=== PATIENT | male | born 1955 | race Caucasian/White ===

== ENCOUNTER → 2021-05-17 07:31 | Outpatient (CLI) | payer OTHER, SELFPAY ==
--- NOTE | 2021-05-17 | DI.MRI.S_ITS ---
PROCEDURE: MR HEAD/BRAIN WO/W CON INDICATIONS: COGNITIVE IMPAIRMENT TECHNIQUE: Noncontrast axial T1 spin echo, axial T2 fast spin echo, sagittal and axial FLAIR, coronal T2 fast spin echo, axial gradient echo, axial diffusion and ADC through the brain. After the administration of contrast, axial and coronal T1 spin echo with fat saturation through the brain. COMPARISON: None. FINDINGS: Image quality: Excellent. CSF spaces: Basal cisterns are patent. No extra-axial fluid collections. Ventricles are normal in size and shape. Brain: No midline shift. No intracranial bleeds or masses. No abnormal intracranial enhancement. There is cerebral volume loss for age. There is periventricular white matter chronic small vessel ischemic change. The brainstem appears normal. Diffusion-weighted images demonstrate no acute ischemic insults. No chronic ischemic insults. Normal intravascular flow voids are present. Skull and face: Calvarial marrow is normal in signal. Orbits appear normal. Sinuses: Sinuses and mastoids appear clear. IMPRESSION: 1. Volume loss and small vessel ischemic disease. 2. No acute process. No recent infarct. Dictated by: Ravi Mendez M.D. on 05/17/2021 at 8:47 Approved by: Ravi Mendez M.D. on 05/17/2021 at 8:48
== END ==
PROVIDERS: PCP Family Medicine; Referring Provider Specialist; Visit Provider Specialist
DX: R41.89 Other symptoms and signs involving cognitive functions and awareness (principal)
CPT/HCPCS: 70553; A9579

== ENCOUNTER → 2021-05-29 07:17 | Outpatient (CLI) | payer OTHER, SELFPAY ==
--- NOTE | 2021-05-29 | DI.MRI.S_ITS ---
PROCEDURE: MR CERVICAL SPINE WO CON INDICATIONS: Cervicalgia TECHNIQUE: Noncontrast sagittal T1 spin echo and T2 fast spin echo, sagittal STIR, foraminal oblique sagittal T2 fast spin echo, and axial gradient echo or T2 fast spin echo through the cervical spine. COMPARISON: [facility], MR, MR HEAD/BRAIN WO/W CON, 05/17/2021, 7:56. FINDINGS: Image quality: This examination is limited by involuntary motion artifact. Alignment and Curvature: There is normal bony alignment. Bone Marrow: Marrow demonstrates normal overall signal. Spinal Cord: Visualized spinal cord has normal size and signal. No cerebellar tonsillar herniation. Paraspinous Soft Tissues: No paravertebral masses. Prevertebral soft tissues are normal in thickness. C2-C3: The disc height is well-preserved. Loss of disc signal is seen at this level. Mild to moderate disc osteophyte complex is seen, which is eccentric to the right. Moderate facet joint hypertrophy is seen. There is moderate to severe right-sided and [id number] left-sided neural foraminal narrowing seen. Mild central canal narrowing is seen. C3-C4: Mild loss of disc height is seen. Loss of disc signal is seen. Moderate disc osteophyte complex is seen, with a central disc osteophyte protrusion. There is prominent right-sided and moderate left-sided facet hypertrophy seen. There is moderate to severe bilateral neural foraminal narrowing seen, right worse than left. Moderate central canal narrowing is seen. There is associated mass effect upon the ventral spinal cord. C4-C5: The disc height is well-preserved. Loss of disc signal is seen at this level. Moderate generalized disc osteophyte complex is seen. There is prominent right-sided and moderate left-sided facet hypertrophy seen. Moderate to severe right-sided and at least moderate left-sided neural foraminal narrowing can be seen. Mild to moderate central canal narrowing is seen, with minimal mass effect upon the ventral spinal cord. C5-C6: Moderate loss of disc height is seen. Loss of disc signal is seen. At least moderate disc osteophyte complex is seen, which is eccentric to the right. Moderate facet joint hypertrophy is seen. Moderate to severe bilateral neural foraminal narrowing can be seen, right worse than left. Moderate central canal narrowing is seen, with associated ventral cord flattening. C6-C7: Moderate loss of disc height is seen. Loss of disc signal is seen. Bridging endplate osteophytes are seen. At least moderate disc osteophyte complex is seen, a central disc osteophyte protrusion. Moderate facet hypertrophy is seen, left worse than right. There is moderate to severe left-sided and least moderate right-sided neural foraminal narrowing seen. Moderate central canal narrowing is seen. There is associated mass effect upon the ventral spinal cord. C7-T1: The disc height is well-preserved. Loss of disc signal is seen at this level. Moderate generalized disc osteophyte complex is seen. Moderate facet joint hypertrophy is seen. There is [id number] right-sided and mild left-sided neural foraminal narrowing seen. Mild central canal narrowing is seen. IMPRESSION: Multiple levels of relatively prominent cervical spine degenerative change are seen, which are overall worst at C3-C4 and at C5-C6 a. Dictated by: Sergio Mahoney M.D. on 05/29/2021 at 8:56 Approved by: Sergio Mahoney M.D. on 05/29/2021 at 9:02
== END ==
PROVIDERS: PCP Family Medicine; Referring Provider Specialist; Visit Provider Specialist
DX: M47.812 Spondylosis without myelopathy or radiculopathy, cervical region (principal); M54.2 Cervicalgia; R29.2 Abnormal reflex; R20.2 Paresthesia of skin
CPT/HCPCS: 72141

== ENCOUNTER 2022-07-14 16:18 | Emergency (ER) | payer OTHER, SELFPAY ==
[2022-07-14] VITALS (19 sets, daily range): BP systolic 117–136; BP diastolic 56–71; PULSE 93–103; RESP 20–42; TEMP 36.7–37.3; O2SAT 93–95; BMI 24.9
--- NOTE | 2022-07-14 16:30 | DI.RAD.S_ITS ---
PROCEDURE: XR CHEST 1V INDICATIONS: suspected sepsis TECHNIQUE: One view of the chest was acquired. COMPARISON: None. FINDINGS: Surgical changes and devices: None. Lungs and pleura: Diffuse bilateral patchy infiltrates. No pleural effusions or pneumothorax. Mediastinum: Mediastinal contours appear normal. Heart size is normal. Bones and chest wall: No suspicious bony lesions. Overlying soft tissues appear unremarkable. Degenerative changes of both shoulders. IMPRESSION: Diffuse bilateral infiltrates consistent with atelectasis and/or diffuse pneumonia. Dictated by: Markus De M.D. on 07/14/2022 at 16:13 Approved by: Markus De M.D. on 07/14/2022 at 16:15
--- NOTE | 2022-07-14 16:47 | PC.NURSE ---
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 pt began having cough 2.5weeks ago, has it also. is better now.. pt went to walk in clinic and was diagnosed with bronchitis, has had 2 rounds of antibiotics last one finished yesterday, doxycycline. pt is not improved still have constant fever and is very fatigued
--- NOTE | 2022-07-14 16:49 | ED_ITS ---
HPI - General Adult <Hermann Goodman DO - Last Filed: 07/15/22 07:09> General Chief complaint: Fever Stated complaint: Sick, High fever Time Seen by Provider: 07/14/22 16:28 Source: patient and family Mode of arrival: Wheelchair Limitations: no limitations History of Present Illness HPI narrative: Patient is a 66-year-old male. Has a history of CLL and is being treated for this. For the past 2 weeks has had fatigue and fevers. He has been seen 2 times at an outpatient walk-in clinic. Has been on 2 different antibiotics. The 1st 1 sounds like it was azithromycin and he just completed a course of doxycycline. This was for ?bronchitis? he does not carry history of COPD but does have a significant smoking history. Denies any skin rashes. No abdominal pain. No sinus congestion. No sore throat. No chest pain. No abdominal pain. He did start to have diarrhea approximately week ago. Patient's states that when he develops the fevers he becomes disoriented. Related Data Allergies Allergy/AdvReac Type Severity Reaction Status Date / Time No Known Drug Allergies Allergy Verified 07/14/22 16:27 Review of Systems <DO Kenia Magallanes Last Filed: 07/15/22 07:09> Review of Systems ROS Unobtainable: All systems reviewed & are unremarkable except as noted in HPI and below Patient History <Hermann Goodman DO - Last Filed: 07/15/22 07:09> Medical History CLL (chronic lymphocytic leukemia) Social History Smoking Status: Former smoker Smoking Status: Former smoker alcohol intake frequency: 0-2 drinks per day Alcohol type: hard liquor Substance Use Type: does not use Exam <DO Kenia Magallanes Last Filed: 07/15/22 07:09> Initial Vital Signs Initial Vital Signs: Vital Signs Pulse Oximetry 95 07/14/22 16:25 Const General: cooperative, comfortable and No ill appearing HENMT Head: normal to inspection and normocephalic Resp Effort & Inspection: normal respiratory effort Auscultation: clear to auscultation bilaterally Cardio Rate: regular rate Rhythm: regular rhythm GI Inspection: normal to inspection Palpation: soft, No firm, splenomegaly and No tender Skin General: no rashes or lesions noted Neuro General: patient alert, patient awake and moves all extremities Extrem General: normal to inspection and capillary refill normal Psych Appearance: grossly normal and well kempt <Hernando Cox DO - Last Filed: 07/14/22 20:47> Initial Vital Signs Initial Vital Signs: Vital Signs Pulse Oximetry 95 07/14/22 16:25 Course <Hermann Goodman DO - Last Filed: 07/15/22 07:09> Orders Ordered: Discontinued Medications Sodium Chloride (Normal Saline 0.9%) 1,000 mls @ 1,000 mls/hr IV BOLUS ONE Stop: 07/14/22 17:29 Last Admin: 07/14/22 17:28 Dose: Not Given Documented By: NR Ondansetron HCl (Ondansetron 4 Mg Odt) 4 mg SL NOW PRN PRN Reason: Nausea And Vomiting Ondansetron HCl (Ondansetron 4 Mg/2 Ml Inj) 4 mg IV NOW PRN PRN Reason: Nausea And Vomiting Vital Signs Vital signs: Vital Signs - 8 hr 07/14/22 16:27 07/14/22 16:25 07/14/22 16:30 Temperature 98.0 F Pulse Rate 103 H 96 H Respiratory Rate 20 40 H Blood Pressure 136/63 Pulse Oximetry 95 95 95 Oxygen Delivery Method Room Air 07/14/22 16:38 07/14/22 16:38 07/14/22 16:45 Temperature Pulse Rate 95 H Respiratory Rate 29 H Blood Pressure 130/63 129/65 Pulse Oximetry 94 Oxygen Delivery Method 07/14/22 16:45 07/14/22 17:00 07/14/22 17:00 Temperature Pulse Rate 96 H 101 H Respiratory Rate 42 H 31 H Blood Pressure 117/56 L Pulse Oximetry 94 94 Oxygen Delivery Method 07/14/22 17:15 07/14/22 17:15 07/14/22 17:30 Temperature Pulse Rate 93 H Respiratory Rate 25 H Blood Pressure 122/59 L 122/57 L Pulse Oximetry 93 Oxygen Delivery Method 07/14/22 17:30 07/14/22 17:45 07/14/22 17:45 Temperature Pulse Rate 94 H 95 H Respiratory Rate 26 H 26 H Blood Pressure 123/56 L Pulse Oximetry 93 93 Oxygen Delivery Method 07/14/22 18:05 07/14/22 18:06 07/14/22 18:06 Temperature Pulse Rate 99 H 99 H Respiratory Rate 30 H 28 H Blood Pressure 134/66 Pulse Oximetry 94 95 Oxygen Delivery Method 07/14/22 18:15 07/14/22 18:15 07/14/22 18:30 Temperature Pulse Rate 97 H Respiratory Rate 26 H Blood Pressure 134/66 131/66 Pulse Oximetry 93 Oxygen Delivery Method 07/14/22 18:30 07/14/22 18:45 07/14/22 18:45 Temperature Pulse Rate 96 H 96 H Respiratory Rate 25 H 26 H Blood Pressure 127/68 Pulse Oximetry 94 93 Oxygen Delivery Method 07/14/22 19:43 07/14/22 19:00 07/14/22 19:00 Temperature 99.2 F Pulse Rate 96 H 96 H Respiratory Rate 26 H 25 H Blood Pressure 132/70 133/68 Pulse Oximetry 94 93 Oxygen Delivery Method Room Air 07/14/22 19:11 07/14/22 19:11 07/14/22 19:15 Temperature Pulse Rate 96 H 96 H Respiratory Rate 29 H 28 H Blood Pressure 135/71 Pulse Oximetry 94 94 Oxygen Delivery Method 07/14/22 19:30 07/14/22 19:30 Temperature Pulse Rate 97 H Respiratory Rate 26 H Blood Pressure 132/70 Pulse Oximetry 93 Oxygen Delivery Method <Hernando Cox DO - Last Filed: 07/14/22 20:47> Orders Ordered: Discontinued Medications Sodium Chloride (Normal Saline 0.9%) 1,000 mls @ 1,000 mls/hr IV BOLUS ONE Stop: 07/14/22 17:29 Last Admin: 07/14/22 17:28 Dose: Not Given Documented By: NR Ondansetron HCl (Ondansetron 4 Mg Odt) 4 mg SL NOW PRN PRN Reason: Nausea And Vomiting Ondansetron HCl (Ondansetron 4 Mg/2 Ml Inj) 4 mg IV NOW PRN PRN Reason: Nausea And Vomiting Vital Signs Vital signs: Vital Signs - 8 hr 07/14/22 16:27 07/14/22 16:25 07/14/22 16:30 Temperature 98.0 F Pulse Rate 103 H 96 H Respiratory Rate 20 40 H Blood Pressure 136/63 Pulse Oximetry 95 95 95 Oxygen Delivery Method Room Air 07/14/22 16:38 07/14/22 16:38 07/14/22 16:45 Temperature Pulse Rate 95 H Respiratory Rate 29 H Blood Pressure 130/63 129/65 Pulse Oximetry 94 Oxygen Delivery Method 07/14/22 16:45 07/14/22 17:00 07/14/22 17:00 Temperature Pulse Rate 96 H 101 H Respiratory Rate 42 H 31 H Blood Pressure 117/56 L Pulse Oximetry 94 94 Oxygen Delivery Method 07/14/22 17:15 07/14/22 17:15 07/14/22 17:30 Temperature Pulse Rate 93 H Respiratory Rate 25 H Blood Pressure 122/59 L 122/57 L Pulse Oximetry 93 Oxygen Delivery Method 07/14/22 17:30 07/14/22 17:45 07/14/22 17:45 Temperature Pulse Rate 94 H 95 H Respiratory Rate 26 H 26 H Blood Pressure 123/56 L Pulse Oximetry 93 93 Oxygen Delivery Method 07/14/22 18:05 07/14/22 18:06 07/14/22 18:06 Temperature Pulse Rate 99 H 99 H Respiratory Rate 30 H 28 H Blood Pressure 134/66 Pulse Oximetry 94 95 Oxygen Delivery Method 07/14/22 18:15 07/14/22 18:15 07/14/22 18:30 Temperature Pulse Rate 97 H Respiratory Rate 26 H Blood Pressure 134/66 131/66 Pulse Oximetry 93 Oxygen Delivery Method 07/14/22 18:30 07/14/22 18:45 07/14/22 18:45 Temperature Pulse Rate 96 H 96 H Respiratory Rate 25 H 26 H Blood Pressure 127/68 Pulse Oximetry 94 93 Oxygen Delivery Method 07/14/22 19:43 07/14/22 19:00 07/14/22 19:00 Temperature 99.2 F Pulse Rate 96 H 96 H Respiratory Rate 26 H 25 H Blood Pressure 132/70 133/68 Pulse Oximetry 94 93 Oxygen Delivery Method Room Air 07/14/22 19:11 07/14/22 19:11 07/14/22 19:15 Temperature Pulse Rate 96 H 96 H Respiratory Rate 29 H 28 H Blood Pressure 135/71 Pulse Oximetry 94 94 Oxygen Delivery Method 07/14/22 19:30 07/14/22 19:30 Temperature Pulse Rate 97 H Respiratory Rate 26 H Blood Pressure 132/70 Pulse Oximetry 93 Oxygen Delivery Method Medical Decision Making <Hermann Goodman DO - Last Filed: 07/15/22 07:09> Lab Data Lab results reviewed: Yes I reviewed the patient's lab results. 07/14/22 16:38 07/14/22 16:38 Labs: Lab Results 07/14/22 07/14/22 07/14/22 Range/Units 16:38 16:38 16:38 WBC 63.9 H* (4.5-11.0) X10^3/uL RBC 4.70 (4.5-5.9) X10^6/uL Hgb 12.1 L (13.5-17.5) g/dL Hct 38.7 L (41-53) % MCV 82.3 (80-100) fL MCH 25.7 L (26-34) PG MCHC 31.2 (30-36) % RDW 21.7 H (11.6-14.8) % Plt Count 194 (150-400) X10^3/uL Neut % (Auto) Not Reportable Lymph % (Auto) Not Reportable [place] % (Auto) Not Reportable Eos % (Auto) Not Reportable Baso % (Auto) Not Reportable Lymph # (Auto) Not Reportable [place] # (Auto) Not Reportable Baso # (Auto) Not Reportable Total Counted 100 Seg Neutrophils % 14.0 L (38-70) % Lymphocytes % (Manual) 8.0 L (25-45) % Atypical Lymphs % 75.0 H ( - 0) % Monocytes % (Manual) 3.0 (2-11) % Neutrophils # (Manual) 8946 H (2369-2172) /uL Smudge Cells 2+ H RBC Morphology See below Poikilocytosis 1+ H Anisocytosis 2+ H PT 18.4 H (10.1-12.7) SECONDS INR 1.6 H (0.9-1.3) APTT 35 (26-36) SECONDS Sodium 133 L (137-145) mmol/L Potassium 3.7 (3.4-5.1) mmol/L Chloride 99 (98-107) mmol/L Carbon Dioxide 28 (22-32) mmol/L BUN 17 (9-20) mg/dL Creatinine 0.64 L (0.66-1.25) mg/dL Estimated GFR > 60 (>60) mL/min BUN/Creatinine Ratio 26.6 H (6-22) Glucose 97 (80-110) mg/dL Lactate (0.7-2.1) mmol/L Calcium 8.3 L (8.4-10.2) mg/dL Total Bilirubin 0.8 (0.2-1.3) mg/dL AST 24 (17-59) IU/L ALT 18 (<50) IU/L Alkaline Phosphatase 78 (38-126) U/L Total Protein 5.9 L (6.3-8.2) g/dL Albumin 3.2 L (3.5-5.0) g/dL Globulin 2.7 (1.7-4.1) g/dL Albumin/Globulin Ratio 1.2 (1.0-2.8) Lipase 49 (23-300) U/L Procalcitonin 0.17 (<0.5) ng/mL Chlamy pneumoniae PCR (Not Detect) Adenovirus (PCR) (Not Detect) B. pertussis DNA (PCR) (Not Detecte) B.parapertussis DNA PCR (Not Detecte) Coronavirus OC43 (PCR) (Not Detect) Coronavirus HKU1 (PCR) (Not Detect) Coronavirus 229E (PCR) (Not Detect) SARS-CoV-2 (PCR) (Not Detecte) Coronavirus NL63 (PCR) (Not Detect) Human Metapneumovir PCR (Not Detect) Influenza Type A (PCR) (Not Detect) Influenza Type B (PCR) (Not Detect) M. pneumoniae (PCR) (Not Detect) Parainfluenza 1 (PCR) (Not Detect) Parainfluenza 2 (PCR) (Not Detect) Parainfluenza 3 (PCR) (Not Detect) Parainfluenza 4 (PCR) (Not Detect) RSV (PCR) (Not Detect) Entero/Rhino (PCR) (Not Detect) 07/14/22 07/14/22 Range/Units 16:38 17:35 WBC (4.5-11.0) X10^3/uL RBC (4.5-5.9) X10^6/uL Hgb (13.5-17.5) g/dL Hct (41-53) % MCV (80-100) fL MCH (26-34) PG MCHC (30-36) % RDW (11.6-14.8) % Plt Count (150-400) X10^3/uL Neut % (Auto) Lymph % (Auto) [place] % (Auto) Eos % (Auto) Baso % (Auto) Lymph # (Auto) [place] # (Auto) Baso # (Auto) Total Counted Seg Neutrophils % (38-70) % Lymphocytes % (Manual) (25-45) % Atypical Lymphs % ( - 0) % Monocytes % (Manual) (2-11) % Neutrophils # (Manual) (4438-7594) /uL Smudge Cells RBC Morphology Poikilocytosis Anisocytosis PT (10.1-12.7) SECONDS INR (0.9-1.3) APTT (26-36) SECONDS Sodium (137-145) mmol/L Potassium (3.4-5.1) mmol/L Chloride (98-107) mmol/L Carbon Dioxide (22-32) mmol/L BUN (9-20) mg/dL Creatinine (0.66-1.25) mg/dL Estimated GFR (>60) mL/min BUN/Creatinine Ratio (6-22) Glucose (80-110) mg/dL Lactate 0.7 (0.7-2.1) mmol/L Calcium (8.4-10.2) mg/dL Total Bilirubin (0.2-1.3) mg/dL AST (17-59) IU/L ALT (<50) IU/L Alkaline Phosphatase (38-126) U/L Total Protein (6.3-8.2) g/dL Albumin (3.5-5.0) g/dL Globulin (1.7-4.1) g/dL Albumin/Globulin Ratio (1.0-2.8) Lipase (23-300) U/L Procalcitonin (<0.5) ng/mL Chlamy pneumoniae PCR Not detected (Not Detect) Adenovirus (PCR) Not detected (Not Detect) B. pertussis DNA (PCR) Not detected (Not Detecte) B.parapertussis DNA PCR Not detected (Not Detecte) Coronavirus OC43 (PCR) Not detected (Not Detect) Coronavirus HKU1 (PCR) Not detected (Not Detect) Coronavirus 229E (PCR) Not detected (Not Detect) SARS-CoV-2 (PCR) Detected H (Not Detecte) Coronavirus NL63 (PCR) Not detected (Not Detect) Human Metapneumovir PCR Not detected (Not Detect) Influenza Type A (PCR) Not detected (Not Detect) Influenza Type B (PCR) Not detected (Not Detect) M. pneumoniae (PCR) Not detected (Not Detect) Parainfluenza 1 (PCR) Not detected (Not Detect) Parainfluenza 2 (PCR) Not detected (Not Detect) Parainfluenza 3 (PCR) Not detected (Not Detect) Parainfluenza 4 (PCR) Not detected (Not Detect) RSV (PCR) Not detected (Not Detect) Entero/Rhino (PCR) Not detected (Not Detect) Imaging Data Chest x-ray: Radiologist's Impression: PROCEDURE:? XR CHEST 1V ? INDICATIONS:? suspected sepsis ? TECHNIQUE:? One view of the chest was acquired.? ? COMPARISON:? None. ? FINDINGS:? ? Surgical changes and devices:? None.? ? Lungs and pleura:? Diffuse bilateral patchy infiltrates.? No pleural effusions or pneumothorax.? ? Mediastinum:? Mediastinal contours appear normal.? Heart size is normal.? ? Bones and chest wall:? No suspicious bony lesions.? Overlying soft tissues appear unremarkable.? Degenerative changes of both shoulders. ? IMPRESSION:? Diffuse bilateral infiltrates consistent with atelectasis and/or diffuse pneumonia.? ECG Data Attestation: I personally reviewed and interpreted this ECG as follows: Interpretation: Sinus rhythm Ventricular rate 97 Normal axis Normal QRS Normal QTC ST T wave changes MDM Narrative Medical decision making narrative: Patient does have a history of CLL. His white blood cell count today is 63 which is actually better than what it has been in the past. Patient also has a history of anemia. Has been on azithromycin and doxycycline which he just completed today. Chest x-ray shows bilateral diffuse infiltrates. Viral panel is pending however given his history of CLL I do feel that a CT scan is warranted to evaluate for PE/infarction/multifocal pneumonia or other disease process. Care turned over to Dr. Cox to follow-up on CT scan and disposition. <Hernando Cox, - Last Filed: 07/14/22 20:47> Lab Data Labs: Lab Results 07/14/22 07/14/22 07/14/22 Range/Units 16:38 16:38 16:38 WBC 63.9 H* (4.5-11.0) X10^3/uL RBC 4.70 (4.5-5.9) X10^6/uL Hgb 12.1 L (13.5-17.5) g/dL Hct 38.7 L (41-53) % MCV 82.3 (80-100) fL MCH 25.7 L (26-34) PG MCHC 31.2 (30-36) % RDW 21.7 H (11.6-14.8) % Plt Count 194 (150-400) X10^3/uL Neut % (Auto) Not Reportable Lymph % (Auto) Not Reportable [place] % (Auto) Not Reportable Eos % (Auto) Not Reportable Baso % (Auto) Not Reportable Lymph # (Auto) Not Reportable [place] # (Auto) Not Reportable Baso # (Auto) Not Reportable Total Counted 100 Seg Neutrophils % 14.0 L (38-70) % Lymphocytes % (Manual) 8.0 L (25-45) % Atypical Lymphs % 75.0 H ( - 0) % Monocytes % (Manual) 3.0 (2-11) % Neutrophils # (Manual) 8946 H (2558-8952) /uL Smudge Cells 2+ H RBC Morphology See below Poikilocytosis 1+ H Anisocytosis 2+ H PT 18.4 H (10.1-12.7) SECONDS INR 1.6 H (0.9-1.3) APTT 35 (26-36) SECONDS Sodium 133 L (137-145) mmol/L Potassium 3.7 (3.4-5.1) mmol/L Chloride 99 (98-107) mmol/L Carbon Dioxide 28 (22-32) mmol/L BUN 17 (9-20) mg/dL Creatinine 0.64 L (0.66-1.25) mg/dL Estimated GFR > 60 (>60) mL/min BUN/Creatinine Ratio 26.6 H (6-22) Glucose 97 (80-110) mg/dL Lactate (0.7-2.1) mmol/L Calcium 8.3 L (8.4-10.2) mg/dL Total Bilirubin 0.8 (0.2-1.3) mg/dL AST 24 (17-59) IU/L ALT 18 (<50) IU/L Alkaline Phosphatase 78 (38-126) U/L Total Protein 5.9 L (6.3-8.2) g/dL Albumin 3.2 L (3.5-5.0) g/dL Globulin 2.7 (1.7-4.1) g/dL Albumin/Globulin Ratio 1.2 (1.0-2.8) Lipase 49 (23-300) U/L Procalcitonin 0.17 (<0.5) ng/mL Chlamy pneumoniae PCR (Not Detect) Adenovirus (PCR) (Not Detect) B. pertussis DNA (PCR) (Not Detecte) B.parapertussis DNA PCR (Not Detecte) Coronavirus OC43 (PCR) (Not Detect) Coronavirus HKU1 (PCR) (Not Detect) Coronavirus 229E (PCR) (Not Detect) SARS-CoV-2 (PCR) (Not Detecte) Coronavirus NL63 (PCR) (Not Detect) Human Metapneumovir PCR (Not Detect) Influenza Type A (PCR) (Not Detect) Influenza Type B (PCR) (Not Detect) M. pneumoniae (PCR) (Not Detect) Parainfluenza 1 (PCR) (Not Detect) Parainfluenza 2 (PCR) (Not Detect) Parainfluenza 3 (PCR) (Not Detect) Parainfluenza 4 (PCR) (Not Detect) RSV (PCR) (Not Detect) Entero/Rhino (PCR) (Not Detect) 07/14/22 07/14/22 Range/Units 16:38 17:35 WBC (4.5-11.0) X10^3/uL RBC (4.5-5.9) X10^6/uL Hgb (13.5-17.5) g/dL Hct (41-53) % MCV (80-100) fL MCH (26-34) PG MCHC (30-36) % RDW (11.6-14.8) % Plt Count (150-400) X10^3/uL Neut % (Auto) Lymph % (Auto) [place] % (Auto) Eos % (Auto) Baso % (Auto) Lymph # (Auto) [place] # (Auto) Baso # (Auto) Total Counted Seg Neutrophils % (38-70) % Lymphocytes % (Manual) (25-45) % Atypical Lymphs % ( - 0) % Monocytes % (Manual) (2-11) % Neutrophils # (Manual) (2991-2657) /uL Smudge Cells RBC Morphology Poikilocytosis Anisocytosis PT (10.1-12.7) SECONDS INR (0.9-1.3) APTT (26-36) SECONDS Sodium (137-145) mmol/L Potassium (3.4-5.1) mmol/L Chloride (98-107) mmol/L Carbon Dioxide (22-32) mmol/L BUN (9-20) mg/dL Creatinine (0.66-1.25) mg/dL Estimated GFR (>60) mL/min BUN/Creatinine Ratio (6-22) Glucose (80-110) mg/dL Lactate 0.7 (0.7-2.1) mmol/L Calcium (8.4-10.2) mg/dL Total Bilirubin (0.2-1.3) mg/dL AST (17-59) IU/L ALT (<50) IU/L Alkaline Phosphatase (38-126) U/L Total Protein (6.3-8.2) g/dL Albumin (3.5-5.0) g/dL Globulin (1.7-4.1) g/dL Albumin/Globulin Ratio (1.0-2.8) Lipase (23-300) U/L Procalcitonin (<0.5) ng/mL Chlamy pneumoniae PCR Not detected (Not Detect) Adenovirus (PCR) Not detected (Not Detect) B. pertussis DNA (PCR) Not detected (Not Detecte) B.parapertussis DNA PCR Not detected (Not Detecte) Coronavirus OC43 (PCR) Not detected (Not Detect) Coronavirus HKU1 (PCR) Not detected (Not Detect) Coronavirus 229E (PCR) Not detected (Not Detect) SARS-CoV-2 (PCR) Detected H (Not Detecte) Coronavirus NL63 (PCR) Not detected (Not Detect) Human Metapneumovir PCR Not detected (Not Detect) Influenza Type A (PCR) Not detected (Not Detect) Influenza Type B (PCR) Not detected (Not Detect) M. pneumoniae (PCR) Not detected (Not Detect) Parainfluenza 1 (PCR) Not detected (Not Detect) Parainfluenza 2 (PCR) Not detected (Not Detect) Parainfluenza 3 (PCR) Not detected (Not Detect) Parainfluenza 4 (PCR) Not detected (Not Detect) RSV (PCR) Not detected (Not Detect) Entero/Rhino (PCR) Not detected (Not Detect) MDM Narrative Medical decision making narrative: Patient does have a history of CLL. His white blood cell count today is 63 which is actually better than what it has been in the past. Patient also has a history of anemia. Has been on azithromycin and doxycycline which he just completed today. Chest x-ray shows bilateral diffuse infiltrates. Viral panel is pending however given his history of CLL I do feel that a CT scan is warranted to evaluate for PE/infarction/multifocal pneumonia or other disease process. Care turned over to Dr. Cox to follow-up on CT scan and disposition. [1800] (Kenny) Patient received in sign out from [Maxine]. I have reviewed the clinical course and performed an independent history and physical exam. CC: 66-year-old male with CLL in 2 weeks of subjective fever and harsh cough without much improvement despite 2 rounds of antibiotics Complicating co-morbidities: Age, CLL Data collected from: Patient Medical records reviewed: No prior notes in our EMR, records from [facility] obtained Differential considered, but not limited to: Flu, COVID, RSV, pneumonia versus other Exam documented above, pertinent findings include: No respiratory distress, no hypoxemia, no increased work of breathing such as tachypnea, use of accessory muscles Lab Test results independently reviewed as above. Pertinent findings: Leukocytosis is chronic and consistent with known CLL and actually decreased from priors where he was as high as the 120s, electrolytes and renal function within normal, respiratory panel consistent with COVID Independently reviewed EKG as above Imaging studies independently reviewed: Chest x-ray and CT angiogram demonstrate ground-glass opacities, no pulmonary embolism noted Consultations: discussed CT with radiologist, findings very suggestive and consistent with COVID Treatments: Zofran and fluids Re-evaluations: Patient resting comfortably Discussion: Patient with subjective fever, chills and a hacking cough for 2 weeks without significant abnormal exam findings, stable vitals, no hypoxemia or need for supplemental oxygen. No significant work of breathing. Patient well hydrated and tolerating orals without difficulty. His symptoms of been present for 2 weeks and he is well outside of any indication for Paxlovid., no pulmonary embolism noted, no other significant abnormalities that would require a specific or immediate intervention, no indication for hospitalization Disposition: see below, along with detailed discharge instructions that have been reviewed with patient as well as indications for ED re-evaluation and additional outpatient follow up Discharge Plan Departure Patient Disposition: Home Clinical Impression: COVID-19 Instructions: COVID-19 Activity Restrictions/Additional Instructions: *You have been diagnosed with [ COVID-19] *What to do: ?* per recommendations from the CDC and the [facility] Department of Health ?* stay home except to get medical care. ?Restrict activities outside your home, except for getting medical care. ?Do not go to work, school, or public areas. ?Avoid using public transportation, ride sharing, or taxis. ?* separate yourself from other people in your home. ?* call ahead before visiting your doctor ?* Wear a facemask ?* Cover your coughs and sneezes ?* Clean your hands often ?* Avoid sharing household items ?* Clean all high-touch services every day ?* Monitor your symptoms and seek prompt medical attention if your illness is worsening, particularly with difficulty in breathing. You may discontinue your isolation when: ?1. You have been fever-free for at least 24 hours without the use of fever reducing medication, AND ?2. Your symptoms are getting better, AND ?3. At least 5 days have passed since symptoms first appeared ?4. If you have fever, continue to stay home until fever resolves Individuals with laboratory confirmed COVID-19 who have not had any symptoms may discontinue home isolation when at least 5 days have passed since the date of their first COVID-19 diagnostic test and have had no subsequent illness You should notifiy any friends and family that have been in close contact *If up to date on COVID Vaccines, then they do not need to quarantine unless symptoms develop. Get tested on day 5 (or sooner if symptoms develop). Take precautions and watch for symptoms until day 10 *If NOT up to date on COVID Vaccines, then CDC recommends quarantine for at least 5 full days. Wear a well fitted mask at home if you must be around others. If they ?develop symptoms they should get tested. If they remain asymptomatic they should get tested on day 5. They should take precautions and monitor for symptoms until day 10. Referrals: Otf Vivas MD [Primary Care Provider] - Stand Alone Forms: Patient Portal/API
[2022-07-14 16:54] LABS: Hematocrit 38.7 % (41-53); Hemoglobin 12.1 g/dL (13.5-17.5); Mean Corpuscular HGB Conc 31.2 % (30-36); Mean Corpuscular Hemoglobin 25.7 PG (26-34); Mean Corpuscular Volume 82.3 fL (80-100); Platelet Count 194 X10^3/uL (150-400); Red Cell Distribution Width 21.7 % (11.6-14.8)
[2022-07-14 17:02] LABS: INR 1.6 (0.9-1.3); Prothrombin Time 18.4 SECONDS (10.1-12.7)
[2022-07-14 17:05] LABS: Lactate (Lactic Acid) 0.7 mmol/L (0.7-2.1); PTT Partial Thromboplastin Tim 35 SECONDS (26-36)
[2022-07-14 17:06] LABS: Alanine Aminotransferase 18 IU/L (<50); Albumin 3.2 g/dL (3.5-5.0); Albumin Globulin Ratio 1.2 (1.0-2.8); Alkaline Phosphatase 78 U/L (38-126); Aspartate Aminotransferase 24 IU/L (17-59); BUN Creatinine Ratio 26.6 (6-22); Bilirubin Total 0.8 mg/dL (0.2-1.3); Blood Urea Nitrogen 17 mg/dL (9-20); Calcium 8.3 mg/dL (8.4-10.2); Carbon Dioxide 28 mmol/L (22-32); Chloride 99 mmol/L (98-107); Estimated Glomerular Filt Rate > 60 mL/min (>60); Globulin 2.7 g/dL (1.7-4.1); Glucose 97 mg/dL (80-110); HEMOLYSIS < 15 (0-50); Lipase 49 U/L (23-300); Potassium 3.7 mmol/L (3.4-5.1); Sodium 133 mmol/L (137-145); Total Protein 5.9 g/dL (6.3-8.2)
[2022-07-14 17:15] LABS: Add Manual Diff / Slide Review YES; White Blood Cell Count 63.9 X10^3/uL (4.5-11.0)
[2022-07-14 17:22] LABS: Procalcitonin 0.17 ng/mL (<0.5)
[2022-07-14 17:24] LABS: Neutrophils Absolute Manual 8946 /uL (3000-5900); Total Cells Counted 100
[2022-07-14 17:25] LABS: Anisocytosis 2+; Poikilocytosis 1+
[2022-07-14 17:26] LABS: Smudge Cells 2+
--- NOTE | 2022-07-14 17:44 | DI.CT.S_ITS ---
PROCEDURE: CT ANGIO CHEST PE PROTOCOL INDICATIONS: multifocal PNA hx of CLL eval for PE/infarction/pneumonia TECHNIQUE: After the administration of intravenous contrast, 2 mm thick sections acquired from the pulmonary apices to the posterior costophrenic angles. 3-dimensional maximum intensity projection (MIP) coronal and sagittal reformats were then acquired through the thorax. For radiation dose reduction, the following was used: automated exposure control, adjustment of mA and/or kV according to patient size. COMPARISON: [facility], CR, XR CHEST 1V, 07/14/2022, 16:37. FINDINGS: Image quality: Excellent. Lungs and pleura: Diffuse peripheral patchy areas of opacity and septal thickening. Centrilobular emphysematous changes in the apices. No focal consolidation. No solid masses. No acute air space opacities. No pleural effusions or pneumothorax. Central and peripheral airways are patent and normal in caliber. Mediastinum: Heart size is normal. No pericardial effusion. No mediastinal adenopathy by size criteria. Thoracic aorta and central pulmonary arteries are normal in size. Esophagus is normal in caliber. No hiatal hernia. Bones and chest wall: No suspicious bony lesions. Gomez rods are seen in the thoracolumbar spine. No vertebral body compression fractures. No axillary or supraclavicular adenopathy by size criteria. Thyroid gland is normal. Abdomen: Limited visualization of the upper abdomen shows no acute abnormality. Massive splenomegaly is identified. IMPRESSION: 1. No pulmonary embolism. 2. Similar to chest x-ray findings, there are patchy areas of ground-glass opacity, predominantly in the periphery of the lung. The appearance is suspicious for a cryptogenic organizing pneumonia or a diffuse atypical infectious process. Other possibilities include eosinophilic pneumonia. Less common possibilities include usual interstitial pneumonitis, desquamated of interstitial pneumonitis, alveolar sarcoidosis, sarcoid is cysts, vasculitis. 3. Massive splenomegaly consistent with patient history of CLL. Dictated by: Markus De M.D. on 07/14/2022 at 17:52 Approved by: Markus De M.D. on 07/14/2022 at 18:06
[2022-07-14 19:00] LABS: Adenovirus Not Detected (Not Detect); B. parapertussis Not Detected (Not Detecte); Bordetella pertussis Not Detected (Not Detecte); Chlamydophila pneumoniae Not Detected (Not Detect); Coronavirus 229E Not Detected (Not Detect); Coronavirus HKU1 Not Detected (Not Detect); Coronavirus NL 63 Not Detected (Not Detect); Coronavirus OC43 Not Detected (Not Detect); Human Metapneumovirus Not Detected (Not Detect); Human Rhinovirus/Enterovirus Not Detected (Not Detect); Influenza A Not Detected (Not Detect); Influenza B Not Detected (Not Detect); Mycoplasma pneumoniae Not Detected (Not Detect); Parainfluenza Virus 1 Not Detected (Not Detect); Parainfluenza Virus 2 Not Detected (Not Detect); Parainfluenza Virus 3 Not Detected (Not Detect); Parainfluenza Virus 4 Not Detected (Not Detect); Respiratory Syncytial Virus Not Detected (Not Detect)
[2022-07-14 19:01] LABS: SARS- CoV-2 Detected (Not Detecte)
== END 2022-07-14 19:45 | disposition home or self-care (01) ==
PROVIDERS: Emergency Medicine; Emergency Provider Emergency Medicine; PCP Family Medicine
DX: U07.1 COVID-19 (principal)
CPT/HCPCS: 36415; 71045; 71275; 80053; 83605; 83690; 84145; 85007; 85025; 85610; 85730; 87040; 87633; 93005; 93010; 99284; Q9967

== ENCOUNTER 2024-08-30 08:41 | Emergency (ER) | payer OTHER, MEDICARE, SELFPAY ==
[2024-08-30] VITALS (40 sets, daily range): BP systolic 124–169; BP diastolic 56–107; PULSE 73–94; RESP 12–27; TEMP 36.6; O2SAT 95–99; BMI 25.7
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
--- NOTE | 2024-08-30 09:09 | EKG_ITS ---
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
[2024-08-30 09:29] LABS: INR 1.2 (0.9-1.3); Prothrombin Time 13.2 SECONDS (9.4-12.5)
[2024-08-30 09:33] LABS: Alanine Aminotransferase 28 IU/L (<50); Albumin 4.6 g/dL (3.5-5.0); Albumin Globulin Ratio 2.1 (1.0-2.8); Alkaline Phosphatase 70 U/L (38-126); Aspartate Aminotransferase 24 IU/L (17-59); BUN Creatinine Ratio 34.6 (6-22); Bilirubin Total 0.6 mg/dL (0.2-1.3); Blood Urea Nitrogen 28 mg/dL (9-20); Calcium 9.7 mg/dL (8.4-10.2); Carbon Dioxide 28 mmol/L (22-32); Chloride 105 mmol/L (98-107); Estimated Glomerular Filt Rate > 60 mL/min (>60); Globulin 2.2 g/dL (1.7-4.1); Glucose 96 mg/dL (70-99); HEMOLYSIS < 15 (0-50); Lipase 54 U/L (23-300); Sodium 141 mmol/L (137-145); Total Protein 6.8 g/dL (6.3-8.2)
[2024-08-30 09:35] LABS: Add Manual Diff / Slide Review NO; Basophils Absolute Auto 100 /uL (0-100); Basophils Percent Auto 0.7 % (0-2); Eosinophils Absolute Auto 0 /uL (0-450); Eosinophils Percent Auto 0.2 % (2-4); Lymphocytes Absolute Auto 8700 /uL (1100-4500); Mean Corpuscular HGB Conc 31.9 % (30-36); Mean Corpuscular Hemoglobin 31.3 PG (26-34); Mean Corpuscular Volume 98.1 fL (80-100); Monocytes Absolute Auto 500 /uL (0-900); Monocytes Percent Auto 3.2 % (3-14); Neutrophils Absolute Auto 5900 /uL (1500-7000); Neutrophils Percent Auto 38.9 % (50-75); Platelet Count 145 X10^3/uL (150-400); Red Blood Cell Count 4.79 X10^6/uL (4.5-5.9); White Blood Cell Count 15.2 X10^3/uL (4.5-11.0)
[2024-08-30 09:37] LABS: PTT Partial Thromboplastin Tim 36 SECONDS (25.1-36.5)
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
[2024-08-30] MEDS: ACETAMINOPHEN 325 MG TABLET 975 MG PO (12:26)
[2024-08-30] MEDS: OXYCODONE IR 5 MG TABLET PO (12:26)
== END 2024-08-30 12:37 | disposition home or self-care (01) ==
PROVIDERS: Emergency Provider Emergency Medicine; PCP Family Medicine
DX: S22.42XA Multiple fractures of ribs, left side, initial encounter for closed fracture (principal); S20.212A Contusion of left front wall of thorax, initial encounter; V19.9XXA Pedal cyclist (driver) (passenger) injured in unspecified traffic accident, initial encounter
CPT/HCPCS: 71101; 80053; 83690; 85025; 85610; 85730; 93005; 99283; 99284